=== PATIENT | female | born 1960 | race Caucasian/White ===

== ENCOUNTER 2017-04-07 05:41 | Day surgery (SDC) | payer OTHER ==
[~2017-04-07] VITALS: Ht 147.3 cm; Wt 72.9 kg
[~2017-04-07 05:41] MED LIST: IBUP-1542 PO; LORA10TA3 PO; NPH10OT RIGHT EAR
[2017-04-07 06:38] VITALS: Ht 147.3 cm; Wt 72.9 kg
[2017-04-07] MEDS ORDERED: OMEP20CA16 PO (06:43)
[2017-04-07] MEDS ORDERED: LEVO25TA53 PO (06:43)
[2017-04-07 07:11] VITALS: BP 137/84; PULSE 81; RESP 18
[2017-04-07] MEDS ORDERED: MIDAZOLAM 1 MG/ML 2 ML INJ ONE (07:33)
[2017-04-07] MEDS ORDERED: FENTAnyl 50 MCG/ML VIAL ONE (07:33)
[2017-04-07 07:35] VITALS: BP 149/91; PULSE 92; RESP 18
--- NOTE | 2017-04-07 07:37 | OPPN ---
Date/Time of Note Date/Time of Note DATE: 04/07/17 TIME: 07:35 Operative Report Preoperative Diagnosis Chronic heartburn Upper abdominal pain Postoperative Diagnosis Hiatal hernia Gastroesophageal reflux disease Gastritis with erosion Operation/Procedure Performed Esophagogastroduodenoscopy and biopsy Provider: ELIZABETH RUIZ MD Anesthesia Type: moderate sedation Estimated blood loss: none Transfusion Required: no Specimens Gastric mucosal biopsy Grafts/Implants: none Complications: no ELIZABETH RUIZ MD Apr 07, 2017 07:37
[2017-04-07 07:50] VITALS: BP 138/82; PULSE 73; RESP 13
--- NOTE | 2017-04-07 08:00 | GILP ---
DATE OF PROCEDURE: 04/07/2017 PROCEDURE PERFORMED: Esophagogastroduodenoscopy and biopsy. SURGEON: Romina Cheng MD PREOPERATIVE DIAGNOSES: 1. Upper abdominal pain. 2. Chronic heartburn. POSTOPERATIVE DIAGNOSES: 1. Hiatal hernia. 2. Gastroesophageal reflux disease. 3. Gastritis with erosions. 4. Gastric mucosal biopsies were taken for Helicobacter pylori test. INDICATION: The patient is a 57-year-old female patient who had upper abdominal pain and chronic heartburn not responding to therapy. The patient was scheduled for endoscopic examination for further evaluation. The procedure and possible complications were well explained to the patient. The patient understood and consented to the procedure. DESCRIPTION OF PROCEDURE: Under the influence of fentanyl and Versed, the gastroscope was carefully introduced into the esophagus. Under direct vision, it was advanced to the stomach, into the pylorus, into the duodenal bulb, and descending duodenum. FINDINGS: Esophagus, the patient had hiatal hernia and gastroesophageal reflux disease. Stomach, she had gastritis with erosions. Gastric mucosal biopsies were taken for Helicobacter pylori test. Duodenum was normal. She tolerated the procedure very well, and there was no complication from the procedure. At the end of procedure, she was awake with stable vital signs and she was discharged home in the care of her family. IMPRESSION: 1. Hiatal hernia. 2. Gastroesophageal reflux disease. 3. Gastritis with erosions. 4. Gastric mucosal biopsies were taken for Helicobacter pylori test. PLAN: 1. Omeprazole 40 mg p.o. q.a.m. 2. Zantac 300 mg p.o. q.h.s. 3. Await Helicobacter pylori test report. Dictated By: MD BUCK Batista/kay/lola /Document#: [id number]
== END 2017-04-07 09:03 | disposition home or self-care (01) ==
LOC: GIL 05:41
PROVIDERS: ATTEND Internal Medicine Gastroenterology
DX: K44.9 Diaphragmatic hernia without obstruction or gangrene (principal); B96.81 Helicobacter pylori [H. pylori] as the cause of diseases classified elsewhere; K52.81 Eosinophilic gastritis or gastroenteritis; K21.9 Gastro-esophageal reflux disease without esophagitis; I10 Essential (primary) hypertension
CPT/HCPCS: 43239; 87081; J2250; J3010; Z7610

== ENCOUNTER 2017-06-08 06:02 | Day surgery (SDC) | payer OTHER ==
[~2017-06-08] VITALS: Ht 142.2 cm; Wt 71.9 kg
[~2017-06-08 06:02] MED LIST changes: -IBUP-1542 PO; +LEVO25TA53 PO; -NPH10OT RIGHT EAR; +OMEP20CA16 PO
[2017-06-08] MEDS ORDERED: COLACE (06:31)
[2017-06-08] MEDS ORDERED: HCTZ (06:31)
[2017-06-08 06:32] VITALS: Ht 142.2 cm; Wt 71.9 kg
[2017-06-08 07:17] VITALS: BP 125/72; PULSE 82; RESP 18
[2017-06-08] MEDS ORDERED: FENTAnyl 50 MCG/ML VIAL ONE (07:47)
[2017-06-08] MEDS ORDERED: MIDAZOLAM 1 MG/ML 2 ML INJ ONE (07:47)
--- NOTE | 2017-06-08 07:51 | OPPN ---
Date/Time of Note Date/Time of Note DATE: 06/08/17 TIME: 07:50 Operative Report Preoperative Diagnosis Screening Postoperative Diagnosis Diverticulosis of the colon Internal hemorrhoids No colon neoplasm was identified Operation/Procedure Performed Colonoscopy Surgeon see signature line treasury assistant None Anesthesia: moderate sedation Estimated blood loss: none Transfusion Required none Specimen None Grafts/Implants none Complications none ELIZABETH RUIZ MD Jun 08, 2017 07:51
--- NOTE | 2017-06-08 07:51 | OPPN ---
Date/Time of Note Date/Time of Note DATE: 06/08/17 TIME: 07:50 Operative Report Preoperative Diagnosis Screening Postoperative Diagnosis Diverticulosis of the colon Internal hemorrhoids No colon neoplasm was identified Operation/Procedure Performed Colonoscopy Surgeon see signature line assistant printer floor covering None Anesthesia: moderate sedation Estimated blood loss: none Transfusion Required none Specimen None Grafts/Implants none Complications none ELIZABETH RUIZ MD Jun 08, 2017 07:51
--- NOTE | 2017-06-08 07:51 | OPPN ---
Date/Time of Note Date/Time of Note DATE: 06/08/17 TIME: 07:50 Operative Report Preoperative Diagnosis Screening Postoperative Diagnosis Diverticulosis of the colon Internal hemorrhoids No colon neoplasm was identified Operation/Procedure Performed Colonoscopy Surgeon see signature line assistant manager trainee None Anesthesia: moderate sedation Estimated blood loss: none Transfusion Required none Specimen None Grafts/Implants none Complications none ELIZABETH RUIZ MD Jun 08, 2017 07:51
[2017-06-08 08:10] VITALS: BP 167/87; RESP 14
--- NOTE | 2017-06-09 04:29 | GILP ---
DATE OF PROCEDURE: NAME OF PROCEDURE: Colonoscopy. SURGEON: Elizabeth Cheng MD PREOPERATIVE DIAGNOSIS: Screening colonoscopy. POSTOPERATIVE DIAGNOSES 1. Colonoscopy all the way to the cecum. 2. Diverticulosis of the colon. 3. Internal hemorrhoids. 4. No colon neoplasm was identified. INDICATION FOR THE PROCEDURE: Ms. Izabela Richardson is a 57-year-old female patient who was scheduled fo r screening colonoscopy. The procedure and possible complications were well explained to the patient. The patient understood and consented to the procedure. DESCRIPTION OF PROCEDURE: Under the influence of fentanyl and Versed, the colonoscope was carefully introduced in the rectum and under direct vision, it was advanced all the way to the cecum. FINDINGS: The patient had diverticulosis of the colon. She also had internal hemorrhoids. No colo n neoplasm was identified. She tolerated the procedure very well, and there was no complication from the procedure. At the end of the procedure, she was awake with stable vital signs and she was discharged home to the care of her family. IMPRESSION: Please see postoperative diagnoses. PLAN: Next screening colonoscopy in 10 years. The patient was advised high-fiber diet. Dictated By: ELIZABETH JANE/NIK Conf#: [id number] DID#: [id number]
== END 2017-06-08 10:55 | disposition home or self-care (01) ==
LOC: GIL 06:02
PROVIDERS: ATTEND Internal Medicine Gastroenterology
DX: Z12.11 Encounter for screening for malignant neoplasm of colon (principal); K57.30 Diverticulosis of large intestine without perforation or abscess without bleeding; K64.8 Other hemorrhoids; I10 Essential (primary) hypertension
CPT/HCPCS: 45378; J2250; J3010; Z7610

== ENCOUNTER 2017-09-12 08:47 | Emergency (ER) | END 2017-09-12 12:40 | disposition home or self-care (01) ==